=== PATIENT | female | born 1995 | race Caucasian/White ===

== ENCOUNTER → 2018-08-05 | Outpatient (CLI) | payer OTHER ==
--- NOTE | 2018-08-05 17:08 | REP ---
Lumbar spine series: Five views. History: Acute midline low back pain without sciatica. No known injury. Findings: Lumbar vertebral body heights are preserved. Alignment is normal. Pedicles and posterior elements are intact. There is no evidence of spondylolysis or spondylolisthesis. Sacrum and SI joints are intact. Psoas margins are symmetric. Disc spaces are maintained. Impression: Normal lumbar spine radiographs. Electronically Signed by Marvin Hutton MD 08/05/2018 05:00 P
== END ==
LOC: M LRY 16:22
PROVIDERS: ATTEND Physician Assistant
DX: M54.5 Low back pain (principal)

== ENCOUNTER 2018-09-11 20:19 | Emergency (ER) | payer OTHER ==
[~2018-09-11] VITALS: Ht 160 cm; Wt 47.7 kg
[2018-09-11 20:19] VITALS: BP 119/64
[2018-09-11] MEDS ORDERED: IBUP-1022 PO (21:02)
--- NOTE | 2018-09-12 15:19 | REP ---
Clinical: left ankle pain. Technique: AP, lateral, bilateral oblique views left ankle. Findings: Mild lateral swelling is appreciated which may reflect inversion injury. No acute fracture or dislocation. Skeletal structures and joint spaces are intact and normal. Ankle mortise appears stable. No subcutaneous emphysema or radiodense foreign body. Impression: Mild lateral swelling. No acute fracture or dislocation. Electronically Signed by Robert Poon MD 09/12/2018 03:10 P
== END 2018-09-11 21:26 | disposition home or self-care (01) ==
LOC: M ED 20:19
DX: S93.402A Sprain of unspecified ligament of left ankle, initial encounter (principal); X50.9XXA Other and unspecified overexertion or strenuous movements or postures, initial encounter; Y92.018 Other place in single-family (private) house as the place of occurrence of the external cause

== ENCOUNTER → 2018-09-11 | Outpatient (CLI) | payer OTHER ==
[~2018-09-11] MED LIST: IBUP-1022 PO
== END ==
LOC: M RAD 19:57
PROVIDERS: ATTEND Physician Assistant
DX: S99.912A Unspecified injury of left ankle, initial encounter (principal); X58.XXXA Exposure to other specified factors, initial encounter; Y92.89 Other specified places as the place of occurrence of the external cause

== ENCOUNTER 2020-04-16 18:36 | Emergency (ER) | payer BC, OTHER, SELFPAY ==
[~2020-04-16] VITALS: Ht 160 cm; Wt 52.1 kg
[2020-04-16 18:36] VITALS: BP 109/55
[2020-04-16] MEDS ORDERED: ADDE10CA3 PO (18:44)
[2020-04-16] MEDS ORDERED: ACETAMINOPHEN 500 MG TAB PO ONE (19:00)
[2020-04-16] MEDS ORDERED: KETOROLAC 30 MG/ML 1ML VIAL IV ONE (19:30)
[2020-04-16] MEDS ORDERED: METOCLOPRAMIDE INJ 10MG/2ML VIAL (J2765 PER 1) IV ONE (19:30)
[2020-04-16] MEDS ORDERED: NS 1,000 ML IV ONE (19:30)
[2020-04-16 20:03] LABS: BASO % 0.2 % (0.0-1.0); HEMATOCRIT 34.8 % (36.0-47.0); HEMOGLOBIN 11.5 g/dl (12.0-15.5); LYMPH # 0.4 10^3/uL (1.5-5.0); LYMPH % 2.9 % (24.0-44.0); MEAN CORPUSCULAR VOLUME 90.9 fl (80.0-96.0); MONO # 0.5 10^3/uL (0.0-0.8); MONO % 3.9 % (0.0-5.0); NEUTROPHILS # 12.3 10^3/uL (1.5-8.5); NEUTROPHILS % 92.4 % (36.0-66.0); PLATELET COUNT, AUTOMATED 231 10^3/uL (150-450); RED BLOOD COUNT 3.83 10^6/uL (4.00-5.40); WHITE BLOOD COUNT 13.3 10^3/uL (4.0-10.0)
[2020-04-16 20:24] LABS: ERYTHROCYTE SEDIMENTATION RATE 10 mm/hr (0-20)
[2020-04-16 20:34] LABS: BLOOD UREA NITROGEN 8 MG/DL (7-18); CALCIUM LEVEL 7.7 MG/DL (8.5-10.1); CARBON DIOXIDE LEVEL 24 MEQ/L (21-32); CHLORIDE LEVEL 105 MEQ/L (98-107); CREATININE FOR GFR 0.66 MG/DL (0.55-1.30); GLOMERULAR FILTRATION RATE > 60.0 (>60); GLUCOSE, FASTING 92 MG/DL (70-100); POTASSIUM SERUM 3.6 MEQ/L (3.5-5.1); SODIUM LEVEL 136 MEQ/L (136-145)
[2020-04-16 20:38] LABS: HCG, SERUM QUALITATIVE NEGATIVE (NEGATIVE); MONO REFLEX EBV COMP NEGATIVE (NEGATIVE)
[2020-04-16 20:54] LABS: RSV AMPLIFICATION NEGATIVE (NEGATIVE)
--- NOTE | 2020-04-16 22:10 | REPVR ---
PROCEDURE INFORMATION: Exam: XR Chest, 2 Views Exam date and time: 04/16/2020 9:19 PM Age: 24 years old Clinical indication: Fever TECHNIQUE: Imaging protocol: XR of the chest Views: 2 views. COMPARISON: No relevant prior studies available. FINDINGS: Lungs: Unremarkable. No consolidation. No pulmonary edema. Pleural space: Unremarkable. No pleural effusion or pneumothorax is identified. Heart/Mediastinum: Unremarkable. No cardiomegaly. Bones/joints: Unremarkable. IMPRESSION: No acute findings. Electronically signed by: Vik Lara On 04/16/2020 22:09:54 PM
[2020-04-19 13:07] LABS: EBV AB TO NUCLEAR ANTIGEN <18.0 U/mL (0.0-17.9); EBV VIRAL CAPSID AG IgG <18.0 U/mL (0.0-17.9); EBV VIRAL CAPSID AG IgM <36.0 U/mL (0.0-35.9)
== END 2020-04-16 23:24 | disposition home or self-care (01) ==
LOC: M ED 18:36
DX: R50.9 Fever, unspecified (principal); D72.829 Elevated white blood cell count, unspecified; F90.9 Attention-deficit hyperactivity disorder, unspecified type
CPT/HCPCS: 36415; 71046; 80048; 83605; 84703; 85025; 85379; 85652; 86140; 86308; 86664; 86665; 87040; 87631; 87880; 96361; 96374; 96375; 99284; J1885; J2765